=== PATIENT | female | born 1995 | race Caucasian/White ===

== ENCOUNTER 2023-05-12 06:26 | Emergency (ER) | payer MEDICAID, SELFPAY ==
[2023-05-12 06:28] VITALS: BP 159/90; PULSE 122; RESP 26; TEMP 36.1; O2SAT 92; BMI 31.8
[2023-05-12 06:32] VITALS: O2SAT 91
--- NOTE | 2023-05-12 06:37 | RAD_ITS ---
INDICATION: cough -- -- ASTHMA EPISODE, CURRENTLY BEING TREATED FOR BRONCHITIS EXAMINATION/TECHNIQUE: X-RAY - XR Chest 2 Views COMPARISON: No relevant prior comparison study available FINDINGS: LINES/DEVICES: None. LUNGS: No consolidation, edema or effusion. No pneumothorax. MEDIASTINUM AND CARDIOVASCULAR STRUCTURES: Cardiac silhouette not enlarged. Central airways and mediastinal contour are unremarkable. BONES AND SOFT TISSUES: Unremarkable. RAD/Chest PA and Lateral IMPRESSION: No radiographic evidence of acute cardiopulmonary disease. Electronically Signed: Elicia West MD at 8:03 EDT ,
--- NOTE | 2023-05-12 06:40 | EDS_ITS ---
HPI History of Present Illness Chief Complaint: Asthma Informant: patient Narrative Narrative: Patient is a 28-year-old female with past medical history of asthma. She states that she typically can control her asthma with her Ventolin inhaler and albuterol nebulizer treatments. She states that roughly 4 to 5 days ago she began with congestion drainage and cough and was diagnosed with bronchitis. She was placed on Zithromax and prednisone which she has been taking for approximately 2 days. She states that this morning she had increased shortness of breath that she used her inhaler and nebulizer for without any symptom improvement and therefore presents to the ER for evaluation. Patient states that her last admission for an asthma flare was approximately 4 years ago. She denies any previous need for intubation secondary to asthma PFSH PFS Home Medications ipratropium 0.5 mg-albuterol 3 mg (2.5 mg base)/3 mL nebulization soln 3 ml inhalation Q4H PRN shortness of breath or wheezing #180 mL 05/12/23 [Rx Last Taken Unknown] Allergy/AdvReac Type Severity Reaction Status Date / Time No Known Allergies Allergy Verified 05/12/23 06:30 Social History Smoking Status: Never smoker [facility] ED Constitutional Constitutional ED: Denies chills or fever(s) ENT ENT ED: Reports rhinorrhea and sore throat Cardiovascular Cardiovascular: Denies chest pain Respiratory/Chest Respiratory/Chest: Reports cough and dyspnea Gastrointestinal Gastrointestinal: Denies abdominal pain, diarrhea, nausea or vomiting Genitourinary Genitourinary ED: Denies dysuria Musculoskeletal Musculoskeletal: Reports myalgias Integumentary Denies rash Neurologic Neurologic: Reports headache(s) Hematologic/Lymphatic Hematologic/Lymphatic: Denies easy bleeding or easy bruising EXAM Physical Exam Const Vital Signs: 05/12/23 06:28 05/12/23 06:32 05/12/23 06:46 Temperature 97 F L Temperature Source Temporal Pulse Rate 122 H 105 H Respiratory Rate 26 H 20 H Respiratory Effort Labored Accessory Muscle Use Respiratory Depth Deep Respiratory Pattern Tachypnea Tachypnea Blood Pressure 159/90 H Blood Pressure Mean 113 Pulse Ox 92 Oxygen Delivery Method Room Air Room Air Positive well nourished and well developed General Appearance ED: well developed; Negative for pallor HEENT HEENT Narrative: Nasal mucosa is hyperemic and boggy No tongue or lip swelling noted There is cobblestoning the posterior pharynx consistent with sinus drainage without airway edema or compromise Eyes PERRL and EOMs intact bilaterally General Eye ED: Negative for scleral icterus Neck supple and no JVD Chest Wall palpation of chest normal Resp Resp Narrative: Patient is tachypneic with accessory muscle use. Breath sounds are diminished throughout with expiratory wheezing in all lung lay. Patient has 3-4 word sentences secondary to dyspnea. No nasal flaring or retractions or stridor noted Cardio regular rhythm Rate: tachycardic and other Other Details: Tachycardic rate with regular rhythm No murmurs rubs or gallops noted Extremity normal to inspection Extremity Narrative: No asymmetric edema no pitting edema negative Homans' sign bilaterally Neuro oriented x3, CN's II-XII intact bilaterally and no sensory deficits noted Sensorium / Orientation: alert Motor Exam: strength 5/5 throughout Psych mental status grossly normal Skin no rashes or lesions noted General Skin Exam: Negative for pallor MDM MDM MDM Narrative Medical decision making narrative: The patient presented to the ER hypertensive and tachycardic but had reportedly done her inhaler and albuterol nebulizer treatments prior to arrival which would explain the derangement to the vitals. With her persistent tachypnea stated shortness of breath and physical exam showing diffuse expiratory wheeze and accessory muscle use differential diagnosis is for asthma exacerbation versus pneumonia versus pneumothorax. There is also concern for acute blood loss anemia or electrolyte derangement such as hypomagnesemia. A chest x-ray was obtained as well as basic blood work. Patient was treated with 2 DuoNeb nebulizer treatments as well as 125 mg of IV Solu-Medrol. At this time the patient's chest x-ray and blood work are still pending as well as potential need for repeat treatments. Patient will be signed out to the day physician Dr. Marr for reassessment. Initial reassessment after steroids and DuoNeb treatments is improvement in work of breathing and breath sounds indicating patient may be stable enough to head home with further treatment. History & Record Review Discussion w/independent historian: Patient Discharge Plan Triage Chief Complaint: Asthma ED Provider: Alber Grossman Dx/Rx/DC Orders Clinical Impression: Asthma exacerbation Instructions: Asthma Action Plan Prescriptions: New ipratropium-albuterol 0.5 mg-3 mg(2.5 mg base)/3 mL solution for nebulization 3 ml inhalation Q4H PRN (Reason: shortness of breath or wheezing) Qty: 180 1R F Primary Care Provider: NEISHA AMARAL CNP
[2023-05-12 06:46] VITALS: PULSE 105; RESP 20
[2023-05-12] MEDS: Ipratropium/Albuterol Sulfate 3 ML AMPUL.NEB INHALATION ×3 (06:46→08:36)
[2023-05-12] MEDS: MethylPREDNISolone 125 MG/2 ML Vial IV (06:56)
[2023-05-12 07:37] LABS: Absolute Lymphocyte Count 1.93 X10^3/uL (0.83-4.51); Absolute Neutrophil Count 7.8 X10^3/uL (2.0-7.7); Basophil# 0.05 X10^3/uL; Basophil% 0.4 % (0-1); Eosinophil# 0.82 X10^3/uL; Eosinophils% 7.3 % (0-5); Hematocrit 45.9 % (37-47); Hemoglobin 14.6 g/dL (12.0-15.0); Lymphocyte # 1.93 X10^3/ul (0.83-4.51); Lymphocyte % 17.1 % (19-41); Mean Corp Hgb Conc 31.8 g/dL (32-36); Mean Corpuscular Hgb 29.1 pg (27.0-32.0); Mean Corpuscular Volume 91.6 fL (81-99); Mean Platelet Vol. 9.3 fl (6.2-12.0); Monocyte# 0.64 X10^3/uL; Monocyte% 5.7 % (0-10); NRBC Flagged by Analyzer 0 % (0-5); Neutrophil # 7.81 X10^3/uL (2.7-7.7); Neutrophil % 69.2 % (47-70); Platelet Count 262 K/mm3 (150-450); RBC Distribution Width CV 12.3 % (11.6-14.6); RBC Distribution Width SD 41.2 fl (35.1-43.9); Red Blood Count 5.01 M/mm3 (4.2-5.4); White Blood Count 11.3 K/mm3 (4.4-11.0)
[2023-05-12 07:59] LABS: Troponin-I HS 6 pg/mL (3.0-54.0)
[2023-05-12 08:05] LABS: Anion Gap 7 (5-15); BUN 10 mg/dL (7-18); BUN/Creat Ratio 13.6 RATIO (10-20); Calcium,Total 8.7 mg/dL (8.5-10.1); Chloride 110 mmol/L (98-107); Creatinine, Serum 0.73 mg/dL (0.55-1.02); EST Glomerular Filtration Rate 100 mL/min (>60); Est Glom Filt Rate - Afr Amer 121 mL/min (>60); Estimated Creatinine Clearance 94.91 ml/min; Glucose 104 mg/dL (74-106); Magnesium 2.2 mg/dL (1.6-2.6); Potassium 2.6 mmol/L (3.5-5.1); Sodium Level 141 mmol/L (136-145)
--- NOTE | 2023-05-12 08:05 | EKG12_ITS ---
Test Reason : Blood Pressure : / mmHG Vent. Rate : 101 BPM Atrial Rate : 101 BPM P-R Int : 142 ms QRS Dur : 080 ms QT Int : 348 ms P-R-T Axes : 061 049 015 degrees QTc Int : 451 ms Sinus tachycardia Otherwise normal ECG No previous ECGs available Confirmed by CADENCE LIU, ASAF ([id number]), non linear editor CRESENCIO OTERO ([id number]) on 05/14/2023 7:04:17 AM Referred By: Confirmed By:GREY VILA MD
[2023-05-12 08:10] VITALS: O2SAT 99
[2023-05-12] MEDS: Potassium Chloride Oral Tablet 20 MEQ 60 MEQ PO (08:13)
[2023-05-12 08:15] VITALS: BP 140/93; PULSE 127; RESP 18; O2SAT 98
--- NOTE | 2023-05-12 08:18 | NURSING ---
NO OLD EKGS
[2023-05-12 08:46] VITALS: BP 133/92; PULSE 113; O2SAT 98
== END 2023-05-12 08:49 | disposition home or self-care (01) ==
PROVIDERS: Emergency Medicine; Emergency Provider Emergency Medicine; Visit Provider Emergency Medicine
DX: J45.901 Unspecified asthma with (acute) exacerbation (principal); E87.6 Hypokalemia; D72.829 Elevated white blood cell count, unspecified
CPT/HCPCS: 36415; 71046; 80048; 83735; 84484; 85025; 93005; 94640; 96374; 99283; A4216